=== PATIENT | female | born 1965 | race Caucasian/White ===

== ENCOUNTER 2023-08-23 12:44 | Emergency (ER) | payer BC ==
[2023-08-23 12:59] VITALS: BP 111/58; PULSE 71; RESP 16; TEMP 97.8; BMI 26.5
== END 2023-08-23 14:59 | disposition home or self-care (01) ==
LOC: JERFT 12:44
PROC: 0HQHXZZ Repair Right Upper Leg Skin, External Approach (ICD-10-PCS; principal; 2023-08-23)
DX: S71.111A Laceration without foreign body, right thigh, initial encounter (principal); W25.XXXA Contact with sharp glass, initial encounter
CPT/HCPCS: 99282-25